=== PATIENT | female | born 1960 ===

== ENCOUNTER → 2024-10-30 14:39 | Outpatient (REF) | payer MEDICARE, BC, SELFPAY ==
[2024-10-30 16:14] LABS: Blood Urea Nitrogen 13 mg/dl (7-17); Calcium 9.6 mg/dl (8.4-10.2); Carbon Dioxide 30 mmol/L (22-30); Chloride 104 mmol/L (98-107); Glucose 104 mg/dl (70-99); Sodium 139 mmol/L (135-145); eGFR > 60.00
== END ==
LOC: REG 14:39
PROVIDERS: ATTENDING PHYSICIAN Internal Medicine
DX: Z13.818 Encounter for screening for other digestive system disorders (principal); G89.4 Chronic pain syndrome
CPT/HCPCS: 36415; 80048

== ENCOUNTER 2025-03-24 06:55 | Emergency (ER) | payer MEDICARE, BC, SELFPAY ==
[2025-03-24 06:59] VITALS: BP 107/68
--- NOTE | 2025-03-24 07:16 | ED.GENMED ---
History of Present Illness
General
Chief Complaint: Musculo-Skeletal Complaint
Source: patient
Exam Limitations: none
Time Seen by Provider: 03/24/25 07:05
History of Present Illness
History of Present Illness:
64yoF with a history of prior thyroidectomy on levothyroxine and chronic back pain on [place] presenting for evaluation of right knee pain. She reports knee pain for the past several days. She denies any trauma or inciting incident. Her pain has
been gradually worsening and she is reporting a throbbing pain in her knee that is worse at the medial aspect of the knee. Pain is worse with movement and weight bearing. She took 2 doses of Tylenol with codeine this morning without relief. She
denies any fevers, chills, calf pain. Patient has a lumbar steroid injection scheduled next week with her pain management doctor. She reports a history of arthritis.
Phy Exam
General Physical Exam
General Presentation: well appearing and no apparent distress
General Skin: warm and dry
General Habitus: normal
General Mental: alert
ENT Exam
ENT Exam: normocephalic
Neurological Exam
Neurological Exam: alert
[place] Coma Scale
Eye Opening: Spontaneous
Verbal Response: Oriented
Motor Response: Obeys Commands
GCS Total Score: 15
Musculoskeletal Exam
Musculoskeletal Exam: other (R knee: No effusion or erythema/skin changes noted. +Tenderness to medial aspect of knee. ROM decreased 2/2 pain. No calf tenderness or pitting edema in extremity. 2+ PT and DP pulses.)
Skin Exam
Skin Exam: normal color and warm/dry
Psychiatric Exam
Psychiatric Exam: normal mood/affect
Course
Orders/Labs/Results
Orders:
Orders
03/24/25 07:14
Ketorolac [Toradol] 30 mg IM NOW STA
CR Knee- Right 4 Or More View* Urgent
Comment:
Reason For Exam: pain
03/24/25 08:35
Knee Immobilizer Right-Treatme ONCE
Vital Signs
Initial and Last Documented VS:
Initial Vital Signs
Temp Pulse Resp BP Pulse Ox
98.0 F 95 18 107/68 95
03/24/25 06:59 03/24/25 06:59 03/24/25 06:59 03/24/25 06:59 03/24/25 06:59
Last Documented Vital Signs
Temp Pulse Resp BP Pulse Ox
98.2 F 70 16 112/71 91
03/24/25 07:46 03/24/25 07:46 03/24/25 07:46 03/24/25 07:46 03/24/25 07:46
MDM/Problems Addressed
Differential Diagnosis Includes:
64yoF here with atraumatic R knee pain x several days. Hx of chronic back pain on [place] and arthritis. VSS. R knee is normal to inspection without erythema or obvious effusion. ROM decreased. RLE is neurovascularly intact. Differential diagnosis
includes but is not limited to: Osteoarthritis, ligamentous injury, doubt fracture, no clinical evidence of septic arthritis
X-rays obtained which are negative for acute osseous abnormalities. IM Toradol given for pain. Upon further questioning, patient does report feeling a pop in the knee while walking 3 days ago. Knee immobilizer provided and advised f/u with
orthopedics.
*Pulse Oximetry
SaO2: 95
Oxygen Mode of Delivery: Room air
Patient hypoxic: no (95%)
*Critical Care Note
Total Time (30-74mins, 75-104mins- exclusive of procedures): Not Applicable
ED Attending Note
-
Portions of this chart may have been created with voice recognition software.� Occasional wrong word or��sound alike� substitutions may have occurred due to the inherent limitations of voice recognition software.
Discharge Plan
Departure
Patient Disposition: Home (Routine Discharge)
Date of Disposition: 03/24/25
Time of Disposition: 08:36
Patient with high blood pressure during this ER visit?: No
Discharge Problem:
Acute pain of right knee
Instructions: Knee Pain (DC)
Prescriptions:
New
naproxen 500 mg tablet
500 mg PO BID PRN (Reason: Pain) Qty: 20 0RF
Referrals:
UNKNOWN - PT NOT,INTERVIEWE [Unknown Provider]
Parth Mata MD [Active, Orthopedics]
Activity Restrictions/Additional Instructions:
Apply ice to affected area. Take naproxen as needed. Use knee immobilizer.
Please call today to schedule a follow-up with orthopedics.
Interventions
Interventions:
*Risk Screen - Suicide Last Done: 03/24/25 06:59
*General Assessment Last Done: 03/24/25 06:59
*Neglect/Abuse Screening Last Done: 03/24/25 07:46
*ED- Fall Risk Assessment Last Done: 03/24/25 07:46
*ED COVID-19 Vaccine History Last Done: 03/24/25 07:46
*Nursing Disposition Last Done: 03/24/25 09:11
ED-Musculoskeletal Assessment Last Done: 03/24/25 07:46
Discharge Date and Time
Discharge Date/Time: 03/24/25 09:44
Print Language: [id number]
[2025-03-24 07:46] VITALS: BP 112/71; BMI 26.8
[2025-03-24] MEDS: TORADOL 30 MG IM (08:10)
== END 2025-03-24 09:44 | disposition home or self-care (01) ==
LOC: EMR 06:55
PROVIDERS: EMERGENCY PHYSICIAN Emergency Medicine; FAMILY PHYSICIAN Physician Assistant Medical
DX: M25.561 Pain in right knee (principal); G89.29 Other chronic pain; E89.0 Postprocedural hypothyroidism; Z79.899 Other long term (current) drug therapy
CPT/HCPCS: 96372; 29505; 99284; 73564